=== PATIENT | female | born 1960 | race Hispanic/Latino ===

== ENCOUNTER 2018-06-17 22:06 | Observation (INO) | payer BC ==
--- NOTE | 2018-06-17 22:43 | ED PDOC ---
Arrival/HPI - General Chief Complaint: Abdominal Pain Time Seen by Provider: 06/17/18 22:10 Historian: Patient - History of Present Illness Narrative History of Present Illness (Text): 06/17/18 22:40 Michelle Pacheco is a 57 year old female smoker, whose past medical history includes SVT, hypertension, and diabetes, who presents to the Emergency department complaining of chest pain. Patient states she was sitting at home when she began experiencing right-sided chest pain with associated jaw pain tonight. Patient notes she has experienced similar symptoms prior. Patient reports a family history of cardiac disease. Patient denies any fever, chills, shortness of breath, nausea, vomiting, diarrhea, urinary symptoms, back pain, neck pain, headache, dizziness, or any other complaints. Symptom Onset: Gradual Symptom Course: Unchanged Activities at Onset: Light Context: Home Past Medical History - Provider Review Nursing Documentation Reviewed: Yes - Infectious Disease Hx of Infectious Diseases: None Family/Social History - Physician Review Nursing Documentation Reviewed: Yes Family/Social History: Unknown Family HX Allergies/Home Meds Allergies/Adverse Reactions: Allergies Sulfa (Sulfonamide Antibiotics) Allergy (Verified 06/17/18 22:16) RASH Home Medications: Home Meds Medication Instructions Recorded Confirmed Empagliflozin [Jardiance] 25 mg PO HS 06/17/18 06/17/18 Ezetimibe/Simvastatin [Vytorin 1 tab PO DAILY 06/17/18 06/17/18 10-40 mg Tablet] Insulin Glargine,Hum.rec.anlog 65 unit SC HS 06/17/18 06/17/18 [Lantus Solostar] Insulin Lispro [humALOG] See Protocol SQ ACHS 06/17/18 06/17/18 Metoprolol Tartrate [Lopressor] 50 mg PO BID 06/17/18 06/17/18 Qvwzz-6-Sqek Ethyl Esters 1 GM 1 gr PO BID 06/17/18 06/17/18 [Lovaza] Review of Systems - Physician Review All systems were reviewed & negative as marked: Yes - Review of Systems Constitutional: Normal. absent: Fevers Eyes: Normal ENT: Other (+jaw pain) Respiratory: Normal Cardiovascular: Chest Pain Gastrointestinal: Normal. absent: Abdominal Pain, Diarrhea, Nausea, Vomiting Genitourinary Female: Normal. absent: Dysuria, Frequency, Hematuria, Urine Output Changes Musculoskeletal: Normal. absent: Back Pain, Neck Pain Skin: Normal. absent: Rash Neurological: Normal. absent: Headache, Dizziness Endocrine: Normal Hemo/Lymphatic: Normal Psychiatric: Normal Physical Exam Vital Signs Reviewed: Yes Vital Signs Temp Pulse Resp BP Pulse Ox 06/17/18 22:17 98.0 F 78 18 161/86 H 98 Temperature: Afebrile Blood Pressure: Hypertensive Pulse: Regular Respiratory Rate: Normal Appearance: Positive for: Well-Appearing, Non-Toxic, Comfortable Pain Distress: None Mental Status: Positive for: Alert and Oriented X 3 - Systems Exam Head: Present: Atraumatic, Normocephalic Pupils: Present: PERRL Extroacular Muscles: Present: EOMI Conjunctiva: Present: Normal Mouth: Present: Moist Mucous Membranes Neck: Present: Normal Range of Motion Respiratory/Chest: Present: Clear to Auscultation, Good Air Exchange. No: Respiratory Distress, Accessory Muscle Use Cardiovascular: Present: Regular Rate and Rhythm, Normal S1, S2. No: Murmurs Abdomen: No: Tenderness, Distention, Peritoneal Signs Back: Present: Normal Inspection Upper Extremity: Present: Normal Inspection. No: Cyanosis, Edema Lower Extremity: Present: Normal Inspection. No: Edema Neurological: Present: GCS=15, CN II-XII Intact, Speech Normal Skin: Present: Warm, Dry, Normal Color. No: Rashes Psychiatric: Present: Alert, Oriented x 3, Normal Insight, Normal Concentration Medical Decision Making ED Course and Treatment: 06/17/18 22:40 Impression: 57 year old female complaining of right-sided chest pain and jaw pain tonight. Plan: -- EKG -- Chest X-ray -- Labs, cardiac enzymes -- Aspirin -- Reassess and disposition Progress Notes: Reviewed EKG, NSR at 82 bpm. Inferior infarct. Anteroseptal infarct. 06/17/18 23:45 Chest X-ray reviewed, shows no acute processes. 06/17/18 23:[address] Cummings, who is aware and agrees with plan. Accepts pt in to her service. Pt will go to Telemetry observation for chest pain. Requests Dr. Miller on consult. - EKG Interpretation Interpreted by ED Physician: Yes Type: 12 lead EKG - Scribe Statement The provider has reviewed the documentation as recorded by the Scribe Massiel Tina Provider Scribe Attestation: All medical record entries made by the Scribe were at my direction and personally dictated by me. I have reviewed the chart and agree that the record accurately reflects my personal performance of the history, physical exam, medical decision making, and the department course for this patient. I have also personally directed, reviewed, and agree with the discharge instructions and disposition. Disposition/Present on Arrival - Present on Arrival Any Indicators Present on Arrival: No History of DVT/PE: No History of Uncontrolled Diabetes: No Urinary Catheter: No History of Decub. Ulcer: No History Surgical Site Infection Following: None - Disposition Have Diagnosis and Disposition been Completed?: Yes Diagnosis: Chest pain Disposition: HOSPITALIZED Disposition Time: 00:07 Patient Problems: Current Active Problems Problem Status Onset Chest pain Acute Condition: STABLE
[2018-06-17 23:08] LABS: HEMOGLOBIN 13.5 g/dL (12.0-16.0); MEAN CELL VOLUME 85.3 fl (80.0-105.0); MEAN CORPUSCULAR HEMOGLOBIN 28.4 pg (25.0-35.0); MEAN CORPUSCULAR HGB CONC 33.3 g/dl (31.0-37.0); MEAN PLATELET VOLUME 9.6 fl (7.0-11.0); RBC 4.75 10^6/uL (3.5-6.1); RED CELL DISTRIBUTION WIDTH 13.7 % (11.5-14.5); WHITE BLOOD COUNT 9.7 10^3/uL (4.5-11.0)
[2018-06-17 23:15] LABS: INR 1.07; PARTIAL THROMBOPLASTIN TIME 28.6 Seconds (25.1-36.5); PROTHROMBIN TIME 12.2 SECONDS (9.4-12.5)
[2018-06-17 23:16] LABS: ALB/GLOB RATIO 1.4 (1.1-1.8); ALBUMIN 4.1 g/dL (3.0-4.8); ALT/SGPT 32 U/L (7-56); AST/SGOT 32 U/L (14-36); BLOOD UREA NITROGEN 15 mg/dL (7-21); CALCIUM 8.9 mg/dL (8.4-10.5); GFR NON-AFRICAN AMERICAN 39
[2018-06-17 23:27] LABS: TROPONIN I < 0.01 ng/mL
--- NOTE | 2018-06-18 09:00 | RAD ---
Date of service: 06/17/2018 HISTORY: chest pain COMPARISON: No prior. FINDINGS: LUNGS: No active pulmonary disease. PLEURA: No significant pleural effusion identified, no pneumothorax apparent. CARDIOVASCULAR: No aortic atherosclerotic calcification present. Normal cardiac size. No pulmonary vascular congestion. OSSEOUS STRUCTURES: No significant abnormalities. VISUALIZED UPPER ABDOMEN: Normal. OTHER FINDINGS: None. IMPRESSION: No active disease.
[2018-06-18 12:35] VITALS: BMI 37.8
[2018-06-18] MEDS ORDERED: Non Formulary Medication (Ezetimibe/Simvastatin [Vytorin 10-40 Mg Tablet] 1 TAB) PO SCH (13:30)
[2018-06-18 15:13] LABS: TROPONIN I < 0.01 ng/mL
[2018-06-18] MEDS ORDERED: EMPAGLIFLOZIN 25 MG PO SCH ×2 (17:00→23:42)
[2018-06-18] MEDS: Insulin Reg-LOW-Coverage SC SCH ×2 (17:15→23:09)
[2018-06-18] MEDS: Omega-3-Acid Ethyl Esters 1 GM Cap PO SCH (17:16)
[2018-06-18] MEDS ORDERED: Omega-3-Acid Ethyl Esters 1 GM Cap PO SCH (18:00)
--- NOTE | 2018-06-18 18:51 | CARD ---
APPROVED REPORT Date of service: 06/17/2018 EKG Measurement Heart [id number] <Conclusion> Normal sinus rhythm Inferior infarct, age undetermined can not be Ruled out Anteroseptal infarct, age undetermined can not be ruled out Abnormal ECG
[2018-06-18] MEDS ORDERED: Insulin Detemir 100 units/ml Vial (Levemir) SC SCH (22:00)
[2018-06-18] MEDS ORDERED: INSULIN GLARGINE HUM REC ANLOG 65 UNIT SC SCH (22:00)
--- NOTE | 2018-06-19 04:01 | CON ---
DATE: 06/18/2015 REASON FOR CONSULTATION: Cardiac evaluation, admitted with right-sided chest pain and abdominal pain. BRIEF CLINICAL HISTORY: A 57-year-old female, active tobacco abuse, history of SVT in the past, hypertension, diabetes, came to the emergency room with complaint of right-sided chest pain and abdominal pain. Denies any chest pain now, complained of right-sided chest pain. Denies any recent history of exertional chest pain on exertion. PAST MEDICAL HISTORY: Significant for diabetes, hypertension, hyperlipidemia. SOCIAL HISTORY: Active tobacco abuse. Denies any history of alcohol abuse. CURRENT MEDICATIONS: The patient is taking Jardiance 25 mg daily, losartan 50 mg daily, insulin subcutaneously, metoprolol 50 mg twice a day, Lovaza 1 g p.o. b.i.d., and Vytorin . ALLERGIES: ALLERGIC TO SULFA DRUG. REVIEW OF SYSTEMS: As per HPI. PHYSICAL EXAMINATION: As follows: VITAL SIGNS: Height of the patient is 5 feet 1 inches, weight of the patient 200 pounds, body mass index 38 kg/m2. Rest of the vitals: Temperature afebrile, heart rate 68, blood pressure 101/44. HEENT: PERRLA intact. NECK: Supple. No carotid bruits or thyromegaly. CHEST: Clear to auscultation. HEART: S1 and S2 regular. ABDOMEN: Soft. EXTREMITIES: Clubbing and cyanosis negative. LABORATORY DATA: WBC 9.3, hemoglobin 13, hematocrit 40.5, platelet count 244,000. INR 1.07. Chemistry shows sodium 140, potassium 3.9, chloride 108, carbon dioxide 25, anion gap of 13, BUN 15, creatinine 1.4. Troponin 0.01, negative. EKG showed normal sinus, inferior wall DE, age indeterminate, cannot rule out inferior wall DE, cannot rule out anterior wall DE of indeterminate age. IMPRESSION: A 57-year-old female with morbid obesity, diabetes, hypertension, hyperlipidemia, admitted with atypical chest pain. So far troponin was negative. Given the multiple risk factors history of coronary artery disease, I suggest echo and stress test, lipid profile, TSH, hemoglobin A1c. Further recommendations depending on the hospital course. We will with you. Thank you Dr. Graves for providing us the opportunity of taking care of the patient, Junior Martinez. Yordan Morris MD [facility] # [id number]
--- NOTE | 2018-06-19 04:28 | HP ---
DATE OF EXAM: 06/18/2018 The patient was seen and examined at the bedside on 06/18/2018. CHIEF COMPLAINT: Chest pain, abdominal pain. HISTORY OF PRESENT ILLNESS: Ms. Michelle Pacheco 57 years old female with history of smoking with past medical history of supraventricular tachycardia, hypertension, diabetes mellitus who came to the emergency department complaining of chest pain. Patient she has been experiencing right-sided chest pain associated with jaw pain last night. Patient noticed that she has experienced similar symptoms prior. The patient reports a family history of cardiac disease, especially in her mother. The patient denies fever, chills. No nausea, vomiting. No diarrhea. No hematuria, hematochezia. No swelling of leg. No dizziness. No headache. No fever. PAST MEDICAL HISTORY: As above, supraventricular tachycardia, hypertension, diabetes mellitus, obesity. FAMILY HISTORY: Father unknown. Mother has history of coronary artery disease. ALLERGIES: PATIENT IS ALLERGIC WITH SULFA. HOME MEDICATIONS: Jardiance, Vytorin, insulin, metoprolol, [place]-3. REVIEW OF SYSTEMS: The patient was seen and examined in her room. Her sister was sitting on the bedside also, looking comfortable. At that moment, no fever, no chills, no chest pain, no palpitation. She was complaining of right upper quadrant abdominal pain. No headache, no dizziness. No hematuria, no hematochezia. No back pain, no neck pain. No rashes. No urinary problem. PHYSICAL EXAMINATION: VITAL SIGNS: Temperature 98, pulse 70, respiratory rate 18, blood pressure 160/86, pulse oximetry is 98%. HEENT: Head is normocephalic, atraumatic. Eyes, PERRLA. Extraocular muscles are intact. Conjunctivae clear. Nose patent. Mucous membranes moist. NECK: Supple. No carotid bruits. No JVD or thyromegaly. CHEST: Bilaterally symmetrical. HEART: S1 and S2 positive. LUNGS: Clear to auscultation. ABDOMEN: Soft. Bowel sounds present. No organomegaly. EXTREMITIES: No edema. No cyanosis. NEUROLOGIC: Patient is awake and alert, moving all four extremities. No focal deficit. LABORATORY DATA: White blood cells 9.7, hemoglobin 13.5, hematocrit 40.5, platelets 247,000. Sodium 142, potassium 3.9, BUN 15, creatinine 1.7, glucose 202. Liver function test within normal limits. Troponin 2 sets are done, less than 0.01. TSH 1.63. ASSESSMENT AND PLAN: Ms. Michelle Pacheco is a 57 years old lady with hyperchloremia, increased creatinine, hyperglycemia who came with chest pain; two sets of troponin is done that is negative; food for hemoglobin A1c and fasting lipid profile. Cardiology consult called with Dr. Morris. Restarted the patient on home medications Zetia, Pepcid given for gastrointestinal prophylaxis, metoprolol which she is taking for supraventricular tachycardia. The patient has insulin dependent diabetes mellitus; I have put her on sliding scale and Ecotrin. Chest x-ray done; ordered ultrasound of the abdomen, especially liver because mother has history of gallstones and she has typically pain in the right upper quadrant. The patient has history of smoking, hypertension. Discussion done with patient's sister and the patient. Cardiology consult called. Repeat labs. We will follow up. Amparo Graves MD [facility]
[2018-06-19 06:51] LABS: HDL CHOLESTEROL 46 mg/dL (29-60)
[2018-06-19 07:03] LABS: LDL CHOLESTEROL 84 mg/dL (0-129)
--- NOTE | 2018-06-19 07:57 | CP.PCM.PN ---
Subjective - Date & Time of Evaluation Date of Evaluation: 06/19/18 Time of Evaluation: 06:25 - Subjective Subjective: Awake, alert, out of bed to chair Reason for consultation and follow up: Cardiac evaluation of right sided chest pain Seen and examined by me and Dr. Morris Objective - Vital Signs/Intake and Output Vital Signs (last 24 hours): Temp Pulse Resp BP Pulse Ox 98 F 60 19 122/68 98 06/19/18 07:30 06/19/18 07:30 06/19/18 07:30 06/19/18 07:30 06/19/18 07:30 - Medications Medications: Current Medications Aspirin (Ecotrin) 81 mg PO DAILY [facility] Ezetimibe (Zetia) 10 mg PO DAILY [facility] Famotidine (Pepcid) 40 mg PO [facility] Last Admin: 06/18/18 21:33 Dose: 40 mg Home Med (Home Med) 1 unit PO DIN [facility] Insulin Detemir (Levemir) 33 unit SC ACB [facility] Insulin Detemir (Levemir) 32 unit SC [facility] Last Admin: 06/18/18 21:31 Dose: 32 units Insulin Human Regular (Humulin R Low) 0 units SC ACHS [facility]; Protocol Last Admin: 06/18/18 23:09 Dose: Not Given Losartan Potassium (Cozaar) 50 mg PO DAILY [facility] Last Admin: 06/18/18 14:22 Dose: 50 mg Metoprolol Tartrate (Lopressor) 50 mg PO 0700,1900 [facility] Last Admin: 06/19/18 06:20 Dose: Not Given Dwxxd-9-Epnd Ethyl Esters (Lovaza) 1 gm PO BID [facility] Last Admin: 06/18/18 17:16 Dose: 1 gm - Labs Labs: 06/17/18 22:44 06/17/18 22:57 PT 12.2 SECONDS (9.4-12.5) 06/17/18 22:44 INR 1.07 06/17/18 22:44 APTT 28.6 Seconds (25.1-36.5) 06/17/18 22:44 - Constitutional Appears: Non-toxic, No Acute Distress - Head Exam Head Exam: NORMAL INSPECTION, NORMOCEPHALIC - Eye Exam Eye Exam: Normal appearance Pupil Exam: NORMAL ACCOMODATION - ENT Exam ENT Exam: Mucous Membranes Moist, Normal Exam - Neck Exam Neck Exam: Full ROM, Normal Inspection - Respiratory Exam Respiratory Exam: Clear to Ausculation Bilateral, NORMAL BREATHING PATTERN - Cardiovascular Exam Cardiovascular Exam: +S1, +S2 - GI/Abdominal Exam GI & Abdominal Exam: Soft, Normal Bowel Sounds Additional comments: right sided abdominal discomfort - Extremities Exam Extremities Exam: Full ROM, Normal Capillary Refill - Neurological Exam Neurological Exam: Alert, Awake, Oriented x3 - Psychiatric Exam Psychiatric exam: Normal Affect, Normal Mood - Skin Skin Exam: Dry, Normal Color, Warm Assessment and Plan - Assessment and Plan (Free Text) Assessment: A 57 year old female, obese who came in to the ER due to right sided chest pain and right side abdominal pain. History of SVT in the past, hypertension, diabetes, hyperlipidemia and current active smoker. Troponin normal x 3. Denies chest pain now. Atypical chest pain. For Echo and stress test today Plan: No distress, denies chest pain For ECHO to evaluate LV function For Stress test to rule out myocardial ischemia For US of the abdomen/gallbladder for right sided abdominal pain Heart rate and blood pressure controlled Elevated HgbA1C Lifestyle modification Diet and exercise regimen Smoking cessation Continue current treatment Continue current medications Further recommendations during hospital course Will follow up Chart reviewed Plan and treatment discussed with Dr. Morris
[2018-06-19] MEDS ORDERED: Aminophylline 25 mg/ml Inj ONE (08:03)
[2018-06-19] MEDS: Insulin Reg-LOW-Coverage SC SCH ×3 (08:36→18:45)
[2018-06-19] MEDS: Insulin Detemir 100 units/ml Vial (Levemir) SC SCH ×2 (08:37→11:36)
--- NOTE | 2018-06-19 09:39 | US ---
Date of service: 06/19/2018 HISTORY: abd pain COMPARISON: None available. TECHNIQUE: Sonographic evaluation of the right upper quadrant of the abdomen. FINDINGS: LIVER: Measures E cm in length. Echogenic liver may be seen in setting of hepatic parenchymal disease or fatty infiltration. No focal hepatic mass identified. The main portal vein appears patent with normal directional flow. No intrahepatic bile duct dilatation. GALLBLADDER: 3 mm echogenic immobile focus consistent with polyp. No gallstones. No gallbladder wall thickening or pericholecystic edema. Negative sonographic Gordon's sign as assessed by the active directory architect. COMMON BILE DUCT: Measures 3 mm. PANCREAS: Not well-visualized. RIGHT KIDNEY: Measures approximately 11.9 x 5.3 x 6.8 cm. No obstructing calculus or hydronephrosis identified. AORTA: Limited visualization appears grossly unremarkable. IVC: Not well-visualized. OTHER FINDINGS: None . IMPRESSION: Echogenic liver may be seen in setting of hepatic parenchymal disease or fatty infiltration. 3 mm probable gallbladder polyp.
[2018-06-19] MEDS: Omega-3-Acid Ethyl Esters 1 GM Cap PO SCH ×2 (11:31→18:46)
--- NOTE | 2018-06-19 12:11 | PN ---
DATE: 06/19/2018 SEX OF THE PATIENT: Female. AGE OF THE PATIENT: 57. REASON FOR CONSULTATION: Cardiac evaluation, epigastric pain, abdominal pain, right sided chest pain. This note is in addition to dictated by nurse practitioner, Linda Flowers. No chest pain is atypical but patient has abnormal EKG, multiple risk factors for coronary artery disease, suggested a coronary stress test. On further interrogation, patient said that she always had abnormal EKG and recently had a stress test a year ago at [facility], found to be negative. History of SVT in the past, diabetes, hypertension, morbid obesity as well as active smoker. Also, GI workup for ultrasound of the abdomen was ordered by Dr. Graves. So far, troponin remains negative. Triglyceride 117, total cholesterol 156, LDL 84, HDL 56, TSH 2.14, hemoglobin A1c 8.2 which reflects very poorly controlled diabetes. RECOMMENDATION: We will get stress test and echo, aggressive control of blood pressure, aggressive control of diabetes. Compliance with medication and emphasis made on weight reduction, modification of lifestyle, modification of risk factor for coronary artery disease is recommended. Thank you Dr. Graves for providing us the opportunity in taking care of the patient, Michelle Pacheco. Yordan Morris MD
[2018-06-19 16:40] VITALS: BP 122/65; PULSE 72; RESP 18; TEMP 99; O2SAT 100
--- NOTE | 2018-06-19 18:15 | CARD ---
APPROVED REPORT Date of service: 06/19/2018 EXAM: Two-dimensional and M-mode echocardiogram with Doppler and color Doppler. INDICATION Chest Pain LVFX 2D DIMENSIONS Left Atrium (2D)3.8 (1.6-4.0cm)IVSd0.9 (0.7-1.1cm) LVDd3.8 (3.9-5.9cm)PWd1.0 (0.7-1.1cm) LVDs2.4 (2.5-4.0cm)FS (%) 36.5 % LVEF (%)66.9 (>50%) M-Mode DIMENSIONS Aortic Root3.20 (2.2-3.7cm)Aortic Cusp Exc.1.50 (1.5-2.0cm) Aortic Valve AoV Peak Qdkzrltg901.0cm/Joe Peak GR.8mmHg Mitral Valve MV E Xqeuuumt24.6cm/sMV A Doemkzcw978.0cm/sE/A ratio0.8 TDI Lateral E' Peak V8.38cm/sMedial E' Peak V6.53cm/sE/Lateral E'10.0 E/Medial E'12.8 Pulmonary Valve PV Peak Tinuludi268.0cm/sPV Peak Grad.6mmHg Tricuspid Valve TR Peak Swluylvn908od/sRAP JQXROPWA35ofNgTX Peak Gr.9mmHg [id number] LEFT VENTRICLE The left ventricle is normal size. There is normal left ventricular wall thickness. The left ventricular function is normal.EF-65% There is normal LV segmental wall motion. Transmitral Doppler flow pattern is Grade III-reversible restrictive diastolic dysfunction. No left ventricle thrombus noted on this study. There is no ventricular septal defect visualized. There is no left ventricular aneurysm. There is no mass noted in the left ventricle. RIGHT VENTRICLE The right ventricle is normal size. There is normal right ventricular wall thickness. The right ventricular systolic function is normal. ATRIA The left atrium size is normal. The right atrium size is normal. The interatrial septum is intact with no evidence for an atrial septal defect. AORTIC VALVE The aortic valve is mildly to moderately thickened. There is trace aortic regurgitation. There is no aortic valvular stenosis. There is no aortic valvular vegetation. MITRAL VALVE The mitral valve is thickened but opens well. Mitral regurgitation is trace. There is no mitral valve stenosis. There is no evidence of mitral valve prolapse. TRICUSPID VALVE The tricuspid valve leaflets are thickened , but open well. There is trace tricuspid regurgitation.RVSP-19 mmof hg. There is no tricuspid valve stenosis. There is no tricuspid valve prolapse or vegetation. PULMONIC VALVE The pulmonic valve is mildly thickened. There is no pulmonic valvular regurgitation. There is no pulmonic valvular stenosis. GREAT VESSELS The aortic root is normal in size. The ascending aorta is normal in size. The pulmonary artery is normal. The IVC is normal in size and collapses >50% with inspiration. PERICARDIAL EFFUSION There is no pleural effusion. There is no pericardial effusion. <Conclusion> Normal chamber Size. EF-65% There is trace aortic regurgitation. Mitral regurgitation is trace. There is trace tricuspid regurgitation.RVSP-19 mmof hg. The IVC is normal in size and collapses >50% with inspiration. There is no pericardial effusion.
--- NOTE | 2018-06-19 21:28 | CARD ---
APPROVED REPORT Date of service: 06/19/2018 Protocol: LEXISCAN Test Type: Lexiscan Sestamibi Stress Test Attending Physician: Dr. Yordan Pugh Referring Physician: Dr. Amparo Graves Test Indications: Chest Pain Height:5 ft 1 in Weight:200lbs Medications: Aspirin,Zetia,Pepcid,Levemir, Humulin R,Cozaar, Lopressor,Lovaza Medical History: 57 y/o female. Hx of diabetes,hypertension, smoker. Target HR: 165 bpm Resting ECG: RSR. Non Specific ST_T Changes. Resting Heart Rate: 65 bpm Resting Blood Pressure: 120/60mmHg Submaximum (85%): 140 bpm PROCEDURE Pharmacologic stress testing was performed using 0.4mg per 5ml of regadenoson given intravenously over 7-10 seconds. POST EXERCISE Reason for Termination: Protocol completed Target HR: No Max HR: 80 bpm 70% of Maximum Predicted HR: 165 bpm Exercise duration: 00:31 min:sec, 0 Stage Exercise capacity: 1.0METs Max Blood Pressure: 168/60mmHg Blood Pressure response to exercise: normal resting BP - appropriate response Heart Rate response to exercise: appropriate Chest Pain: No, none Angina index: 0 Arrhythmia: No, none ST Change: No, none Deviation: 0 mm INTERPRETATION Stress EKG Conclusion: IV LEXISCAN NUCLEAR STRESS TEST NEGATIVE FOR CHEST PAIN AND NEGATIVE FOR ST-T CHANGES. NUCLEAR SCAN REPORT PENDING. Signed by Yordan Pugh Electronically Approved: 06/19/2018 09:47:41 EXAM: Myocardial Perfusion REST/STRESS Stress Test Type: Pharmacologic Imaging Protocol Rest Spect myocardial perfusion imaging was performed in supine position 50 minutes following the injection of 10.3 mCi of Tc-99 Myoview. At peak stress, the patient was injected intravenously with 30.7mCi of Tc-99 tetrofosmin after an infusion time of 0 minutes and 10 seconds. Gated Stress Spect was performed 80 minutes after intravenous Tc-99 Myoview injection. The images were gated to evaluate regional wall motion and calculate ventricular ejection fraction.Images were reconstructed using backfilter projection method in short horizontal and verticle long axis. Spect slices were generated. LV Perfusion The quality of the study is good. The left ventricle is normal in size. The right ventricle is unremarkable. The lung uptake is within normal limits. The distribution of tracer reveals normal uptake pattern throughout the LV myocardium on the stress study. The rest myocardial perfusion study shows no significant change. Wall Motion Wall motion study shows good contractility of the left ventricle. LVEF = 80%. Conclusion 1. Normal SPECT myocardial perfusion study. 2. Normal gated wall motion of the left ventricle.
== END 2018-06-19 22:24 | disposition home or self-care (01) ==
LOC: ED 22:06 → ERH 06-18 00:04 → 3RSO 06-18 06:55
PROVIDERS: ADMIT Internal Medicine; ATTEND Internal Medicine
DX: R07.89 Other chest pain (principal); R10.13 Epigastric pain; I10 Essential (primary) hypertension; I47.1 Supraventricular tachycardia; E78.5 Hyperlipidemia, unspecified; E11.65 Type 2 diabetes mellitus with hyperglycemia; F17.200 Nicotine dependence, unspecified, uncomplicated; E66.01 Morbid (severe) obesity due to excess calories; Z68.38 Body mass index [BMI] 38.0-38.9, adult; Z79.4 Long term (current) use of insulin; Z88.2 Allergy status to sulfonamides
CPT/HCPCS: 36415; 71045; 76705; 78452; 80053; 80061; 82550; 82948; 83036; 83615; 84443; 84484; 85027; 85610; 85730; 93005; 93017; 93306; 99285; A9502; G0378